=== PATIENT | male | born 1930 | race Caucasian/White ===

== ENCOUNTER 2016-08-13 22:05 | Inpatient (IN) | payer MEDICAID, MEDICARE ==
[~2016-08-13] VITALS: Ht 167.6 cm; Wt 47.2 kg
[~2016-08-13 22:05] MED LIST: ACET100V5 NEB; ALBU1.25 NEB; ASPI-618 PO; CHOL10002 PO; CYAN10009 PO; IPRA0.2S6 NEB; LEVO25TA9 PO; MAGN400O4 PO; MEGE20TA5 PO; MENT71OI TOP; OMEG1CAP PO; PANT40TA2 PO; PIPE3.379 IV; SIMV10TA6 PO
[2016-08-13 22:36] LABS: BASOPHILS % (AUTO) 0.3 % (0.0-2.0); CALCIUM 9.1 mg/dL (8.5-10.1); EOSINOPHILS % (AUTO) 0.1 % (0.0-7.0); HEMOGLOBIN 10.8 g/dL (14.0-18.0); LYMPHOCYTES # (AUTO) 1.1 K/uL (0.8-4.8); LYMPHOCYTES % (AUTO) 10.3 % (20.5-51.5); MEAN CORPUSCULAR HEMOGLOBIN 29.8 uug (27.0-31.0); MEAN CORPUSCULAR HGB CONC 33 g/dL (32.0-37.0); MEAN CORPUSCULAR VOLUME 90.9 fL (82.0-92.0); MONOCYTES % (AUTO) 9.3 % (0.0-11.0); NEUTROPHILS # (AUTO) 8.8 K/uL (1.8-8.9); PLATELET COUNT (AUTO) 416 K/uL (150-450); POTASSIUM 4.2 mmol/L (3.5-5.1); RED BLOOD CELL COUNT(AUTO) 3.63 MIL/uL (4.70-6.10); RED CELL DISTRIBUTION WIDTH 13.4 % (11.5-14.5); WHITE BLOOD COUNT (AUTO) 10.9 K/uL (4.0-11.2)
[2016-08-13 22:49] LABS: ALBUMIN 2.3 g/dL (3.4-5.0); BILIRUBIN,DIRECT 0.2 mg/dL (0.0-0.2); BILIRUBIN,TOTAL 0.4 mg/dL (0.2-1.0)
[2016-08-13] MEDS ORDERED: ACET-2154 PO (23:09)
[2016-08-13 23:24] LABS: LACTIC ACID 2.2 mmol/L (0.4-2.0)
[2016-08-14] MEDS ORDERED: ASPIRIN 325 MG TABLET PO ONE
[2016-08-14] MEDS ORDERED: FUROSEMIDE 20 MG/2 ML VIAL IV ONE
[2016-08-14] MEDS ORDERED: FUROSEMIDE 40 MG/4 ML VIAL ONE (00:06)
[2016-08-14] MEDS ORDERED: ASPIRIN 325 MG TABLET ONE (00:06)
[2016-08-14 00:55] VITALS: BP 150/74
[2016-08-14] MEDS ORDERED: MAGNESIUM HYDROXIDE 30 ML LIQUID UDC PO PRN (01:00)
[2016-08-14] MEDS ORDERED: ONDANSETRON 4 MG/2 ML VIAL IV PRN (01:00)
[2016-08-14] MEDS ORDERED: Z GUARD REMEDY PASTE 57 GM TUBE TOP PRN (01:15)
[2016-08-14 04:48] VITALS: BP 124/57
[2016-08-14] MEDS: CYANOCOBALAMIN 1,000 MCG TABLET PO SCH (08:46)
[2016-08-14] MEDS: ASPIRIN EC 81 MG TABLET.DR PO SCH (08:46)
[2016-08-14] MEDS: CHOLECALCIFEROL 1,000 UNIT TABLET PO SCH (08:46)
[2016-08-14] MEDS: PANTOPRAZOLE SODIUM 40 MG TABLET.DR PO SCH (08:48)
[2016-08-14] MEDS: OMEGA-3 FATTY ACIDS/FISH OIL CAPSULE PO SCH ×2 (09:00→10:34)
[2016-08-14] MEDS: LEVOTHYROXINE SODIUM 25 MCG TABLET PO SCH ×2 (09:08→10:34)
[2016-08-14] MEDS ORDERED: DEXTROSE 5% IV ONE (11:15)
[2016-08-14] MEDS ORDERED: BUMETANIDE IV ONE (11:15)
[2016-08-14] MEDS ORDERED: ACETAzolamide SODIUM 500 MG VIAL IV ONE (11:15)
[2016-08-14 11:40] VITALS: BP 126/53
[2016-08-14 15:22] VITALS: BP 117/46
[2016-08-14 20:00] VITALS: BP 138/61
[2016-08-14] MEDS: ACETAMINOPHEN 325 MG TABLET PO PRN (20:39)
[2016-08-14] MEDS: SIMVASTATIN 10 MG TABLET PO SCH (20:39)
[2016-08-14] MEDS: Z GUARD REMEDY PASTE 57 GM TUBE TOP PRN (21:00)
[2016-08-15] VITALS: BP 151/83
[2016-08-15 04:00] VITALS: BP 140/65
[2016-08-15 05:33] LABS: BASOPHILS % (AUTO) 0.1 % (0.0-2.0); EOSINOPHILS # (AUTO) 0.1 K/uL (0.0-0.7); EOSINOPHILS % (AUTO) 0.6 % (0.0-7.0); HEMATOCRIT 37.8 % (40.0-50.0); HEMOGLOBIN 12.2 g/dL (14.0-18.0); LYMPHOCYTES # (AUTO) 2.8 K/uL (0.8-4.8); LYMPHOCYTES % (AUTO) 15.1 % (20.5-51.5); MEAN CORPUSCULAR HEMOGLOBIN 29.6 uug (27.0-31.0); MEAN CORPUSCULAR HGB CONC 32 g/dL (32.0-37.0); MEAN CORPUSCULAR VOLUME 91.6 fL (82.0-92.0); MONOCYTES # (AUTO) 1.2 K/uL (0.1-1.30); MONOCYTES % (AUTO) 6.5 % (0.0-11.0); NEUTROPHILS # (AUTO) 14.5 K/uL (1.8-8.9); NEUTROPHILS % (AUTO) 77.7 % (38.5-71.5); PLATELET COUNT (AUTO) 414 K/uL (150-450); RED BLOOD CELL COUNT(AUTO) 4.12 MIL/uL (4.70-6.10); RED CELL DISTRIBUTION WIDTH 14.1 % (11.5-14.5); WHITE BLOOD COUNT (AUTO) 18.6 K/uL (4.0-11.2)
[2016-08-15 05:45] LABS: CALCIUM 9.8 mg/dL (8.5-10.1); CREATININE 1.1 mg/dL (0.6-1.3); POTASSIUM 3.6 mmol/L (3.5-5.1)
[2016-08-15] MEDS: LEVOTHYROXINE SODIUM 25 MCG TABLET PO SCH (06:27)
[2016-08-15] MEDS: PANTOPRAZOLE SODIUM 40 MG TABLET.DR PO SCH (06:27)
[2016-08-15 07:38] VITALS: BP 136/62
[2016-08-15] MEDS: Z GUARD REMEDY PASTE 57 GM TUBE TOP PRN (08:26)
[2016-08-15] MEDS: CYANOCOBALAMIN 1,000 MCG TABLET PO SCH (08:26)
[2016-08-15] MEDS: CHOLECALCIFEROL 1,000 UNIT TABLET PO SCH (08:26)
[2016-08-15] MEDS: OMEGA-3 FATTY ACIDS/FISH OIL CAPSULE PO SCH (08:26)
[2016-08-15] MEDS: ASPIRIN EC 81 MG TABLET.DR PO SCH (08:26)
[2016-08-15 11:16] VITALS: BP 129/57
[2016-08-15 16:00] VITALS: BP 136/70
[2016-08-15 19:00] VITALS: BP 135/63
[2016-08-15] MEDS: SIMVASTATIN 10 MG TABLET PO SCH (20:43)
[2016-08-15] MEDS: ENOXAPARIN SODIUM 30 MG/0.3 ML DISP.SYRIN SUBCUT SCH (20:43)
[2016-08-15] MEDS: BUMETANIDE 1 MG/4 ML VIAL IV SCH (21:39)
[2016-08-15] MEDS ORDERED: BUMETANIDE 1 MG/4 ML VIAL ONE (21:42)
[2016-08-16 00:02] VITALS: BP 137/62
[2016-08-16 02:28] LABS: *BILIRUBIN,URIN NEGATIVE (NEGATIVE); *BLOOD, URINE 2+ (NEGATIVE); *CLARITY,URINE SLIGHTLY CLOUDY (CLEAR); *COLOR,URINE YELLOW (YELLOW); *KETONES,URINE NEGATIVE (NEGATIVE); *PROTEIN,URINE NEGATIVE (NEGATIVE); LEUKOCYTE ESTERASE ,URINE NEGATIVE (NEGATIVE); NITRITE, URINE NEGATIVE (NEGATIVE); UGLUCOSE NEGATIVE (NEGATIVE)
[2016-08-16 02:33] LABS: BACTERIA,URINE FEW /HPF (NONE SEEN); RBC,URINE 20-50 /HPF (0-3); SQUAMOUS EPITHELIAL CELL,UR FEW /HPF (NONE SEEN); WBC,URINE 0-3 /HPF (0-3)
[2016-08-16 04:53] VITALS: BP 138/71
[2016-08-16] MEDS: LEVOTHYROXINE SODIUM 25 MCG TABLET PO SCH (06:40)
[2016-08-16] MEDS: PANTOPRAZOLE SODIUM 40 MG TABLET.DR PO SCH (06:40)
[2016-08-16 08:01] LABS: BASOPHILS # (AUTO) 0.1 K/uL (0.0-0.2); BASOPHILS % (AUTO) 0.5 % (0.0-2.0); EOSINOPHILS % (AUTO) 0.2 % (0.0-7.0); HEMATOCRIT 39.1 % (40.0-50.0); HEMOGLOBIN 12.7 g/dL (14.0-18.0); LYMPHOCYTES # (AUTO) 2.1 K/uL (0.8-4.8); LYMPHOCYTES % (AUTO) 13.9 % (20.5-51.5); MEAN CORPUSCULAR HEMOGLOBIN 29.5 uug (27.0-31.0); MEAN CORPUSCULAR HGB CONC 33 g/dL (32.0-37.0); MONOCYTES # (AUTO) 0.7 K/uL (0.1-1.30); MONOCYTES % (AUTO) 4.4 % (0.0-11.0); NEUTROPHILS # (AUTO) 11.9 K/uL (1.8-8.9); PLATELET COUNT (AUTO) 473 K/uL (150-450); RED CELL DISTRIBUTION WIDTH 14.1 % (11.5-14.5); WHITE BLOOD COUNT (AUTO) 14.8 K/uL (4.0-11.2)
[2016-08-16 08:06] LABS: CREATININE 1.1 mg/dL (0.6-1.3); POTASSIUM 3.3 mmol/L (3.5-5.1)
[2016-08-16 08:19] LABS: THYROID STIMULATING HORMONE 3.37 mIU/mL (0.358-3.740)
[2016-08-16] MEDS: CHOLECALCIFEROL 1,000 UNIT TABLET PO SCH (08:29)
[2016-08-16] MEDS: OMEGA-3 FATTY ACIDS/FISH OIL CAPSULE PO SCH (08:29)
[2016-08-16] MEDS: CYANOCOBALAMIN 1,000 MCG TABLET PO SCH (08:29)
[2016-08-16] MEDS: BUMETANIDE 1 MG/4 ML VIAL IV SCH ×2 (08:29→16:18)
[2016-08-16] MEDS: ASPIRIN EC 81 MG TABLET.DR PO SCH (08:29)
[2016-08-16] MEDS: ALBUTEROL SULFATE 1.25 MG/3 ML NEBU NEB PRN (09:15)
[2016-08-16] MEDS: IPRATROPIUM BROMIDE 0.5 MG/2.5 ML NEBU NEB PRN (09:15)
[2016-08-16 11:26] VITALS: BP 141/41
[2016-08-16 11:30] VITALS: BP 141/41
[2016-08-16] MEDS ORDERED: POTASSIUM CHLORIDE 20 MEQ TAB.PRT.SR PO ONE (11:30)
[2016-08-16 15:36] VITALS: BP 139/56
[2016-08-16 20:00] VITALS: BP 137/49
[2016-08-16] MEDS: SIMVASTATIN 10 MG TABLET PO SCH (20:20)
[2016-08-16] MEDS: ENOXAPARIN SODIUM 30 MG/0.3 ML DISP.SYRIN SUBCUT SCH (20:21)
[2016-08-17 04:00] VITALS: BP 152/56
[2016-08-17] MEDS: PANTOPRAZOLE SODIUM 40 MG TABLET.DR PO SCH (06:32)
[2016-08-17] MEDS: LEVOTHYROXINE SODIUM 25 MCG TABLET PO SCH (06:32)
[2016-08-17 06:58] LABS: BASOPHILS % (AUTO) 0.2 % (0.0-2.0); CALCIUM 9.2 mg/dL (8.5-10.1); CREATININE 0.9 mg/dL (0.6-1.3); EOSINOPHILS # (AUTO) 0.1 K/uL (0.0-0.7); EOSINOPHILS % (AUTO) 0.4 % (0.0-7.0); HEMATOCRIT 32.1 % (40.0-50.0); HEMOGLOBIN 10.8 g/dL (14.0-18.0); LYMPHOCYTES % (AUTO) 13.7 % (20.5-51.5); MAGNESIUM 1.9 mg/dL (1.8-2.4); MEAN CORPUSCULAR HEMOGLOBIN 30.6 uug (27.0-31.0); MEAN CORPUSCULAR HGB CONC 34 g/dL (32.0-37.0); MEAN CORPUSCULAR VOLUME 91.2 fL (82.0-92.0); MONOCYTES # (AUTO) 0.9 K/uL (0.1-1.30); MONOCYTES % (AUTO) 5.7 % (0.0-11.0); NEUTROPHILS # (AUTO) 11.9 K/uL (1.8-8.9); PHOSPHOROUS 3.5 mg/dL (2.5-4.9); PLATELET COUNT (AUTO) 430 K/uL (150-450); POTASSIUM 3.1 mmol/L (3.5-5.1); RED BLOOD CELL COUNT(AUTO) 3.52 MIL/uL (4.70-6.10); WHITE BLOOD COUNT (AUTO) 14.9 K/uL (4.0-11.2)
[2016-08-17] MEDS: ASPIRIN EC 81 MG TABLET.DR PO SCH (08:15)
[2016-08-17] MEDS: CYANOCOBALAMIN 1,000 MCG TABLET PO SCH (08:16)
[2016-08-17] MEDS: OMEGA-3 FATTY ACIDS/FISH OIL CAPSULE PO SCH (08:16)
[2016-08-17] MEDS: CHOLECALCIFEROL 1,000 UNIT TABLET PO SCH (08:16)
[2016-08-17] MEDS ORDERED: POTASSIUM CHLORIDE 20 MEQ TAB.PRT.SR PO ONE (10:00)
[2016-08-17] MEDS: POTASSIUM CHLORIDE 20 MEQ TAB.PRT.SR PO SCH ×2 (10:31→14:08)
[2016-08-17 11:41] VITALS: BP 127/55
[2016-08-17] MEDS: BUMETANIDE 1 MG TABLET PO SCH (14:07)
[2016-08-17] MEDS: ALBUTEROL SULFATE 1.25 MG/3 ML NEBU NEB PRN (14:48)
[2016-08-17] MEDS: IPRATROPIUM BROMIDE 0.5 MG/2.5 ML NEBU NEB PRN (14:48)
[2016-08-17 15:50] VITALS: BP 154/57
[2016-08-17 20:00] VITALS: BP 149/73
[2016-08-17] MEDS: ENOXAPARIN SODIUM 30 MG/0.3 ML DISP.SYRIN SUBCUT SCH (20:21)
[2016-08-17] MEDS: ACETAMINOPHEN 325 MG TABLET PO PRN (20:21)
[2016-08-17] MEDS: SIMVASTATIN 10 MG TABLET PO SCH (20:21)
[2016-08-18 04:12] VITALS: BP 145/69
[2016-08-18] MEDS: PANTOPRAZOLE SODIUM 40 MG TABLET.DR PO SCH (06:24)
[2016-08-18] MEDS: LEVOTHYROXINE SODIUM 25 MCG TABLET PO SCH (06:24)
[2016-08-18 08:26] LABS: BASOPHILS % (AUTO) 0.1 % (0.0-2.0); EOSINOPHILS # (AUTO) 0.1 K/uL (0.0-0.7); EOSINOPHILS % (AUTO) 0.7 % (0.0-7.0); HEMATOCRIT 37.7 % (40.0-50.0); HEMOGLOBIN 12.3 g/dL (14.0-18.0); LYMPHOCYTES # (AUTO) 2.2 K/uL (0.8-4.8); LYMPHOCYTES % (AUTO) 15.8 % (20.5-51.5); MEAN CORPUSCULAR HEMOGLOBIN 30.1 uug (27.0-31.0); MEAN CORPUSCULAR HGB CONC 33 g/dL (32.0-37.0); MEAN CORPUSCULAR VOLUME 92.2 fL (82.0-92.0); MONOCYTES % (AUTO) 6.9 % (0.0-11.0); NEUTROPHILS # (AUTO) 10.8 K/uL (1.8-8.9); NEUTROPHILS % (AUTO) 76.5 % (38.5-71.5); PLATELET COUNT (AUTO) 425 K/uL (150-450); RED BLOOD CELL COUNT(AUTO) 4.09 MIL/uL (4.70-6.10); WHITE BLOOD COUNT (AUTO) 14.1 K/uL (4.0-11.2)
[2016-08-18 08:37] LABS: CALCIUM 9.5 mg/dL (8.5-10.1); POTASSIUM 4.6 mmol/L (3.5-5.1)
[2016-08-18] MEDS: OMEGA-3 FATTY ACIDS/FISH OIL CAPSULE PO SCH (09:03)
[2016-08-18] MEDS: CYANOCOBALAMIN 1,000 MCG TABLET PO SCH (09:03)
[2016-08-18] MEDS: CHOLECALCIFEROL 1,000 UNIT TABLET PO SCH (09:04)
[2016-08-18] MEDS: ASPIRIN EC 81 MG TABLET.DR PO SCH (09:05)
[2016-08-18] MEDS: BUMETANIDE 1 MG TABLET PO SCH (09:45)
[2016-08-18] MEDS ORDERED: BUME1TAB13 PO (10:56)
[2016-08-18] MEDS: ALBUTEROL SULFATE 1.25 MG/3 ML NEBU NEB PRN (10:57)
[2016-08-18] MEDS: IPRATROPIUM BROMIDE 0.5 MG/2.5 ML NEBU NEB PRN (10:57)
[2016-08-18 11:37] VITALS: BP 147/67
[2016-08-18 11:58] LABS: BAND % (MANUAL) 2 % (0-10); EOSINOPHILS % (MANUAL) 2 % (0-8); LYMPHOCYTES % (MANUAL) 13 % (20-40); MONOCYTES % (MANUAL) 5 % (2-10); NEUTROPHILS % (MANUAL) 78 % (42-75); PLATELET ESTIMATE ADEQUATE
[2016-08-18 11:59] LABS: HYPOCHROMASIA 1+
[2016-08-18 15:37] VITALS: BP 155/62
[2016-08-18 20:00] VITALS: BP 152/63
[2016-08-18] MEDS: SIMVASTATIN 10 MG TABLET PO SCH (20:04)
[2016-08-18] MEDS: ENOXAPARIN SODIUM 30 MG/0.3 ML DISP.SYRIN SUBCUT SCH (20:05)
[2016-08-19] VITALS: BP 138/56
[2016-08-19 04:00] VITALS: BP 134/56
[2016-08-19] MEDS: BUMETANIDE 1 MG TABLET PO SCH (09:00)
[2016-08-19] MEDS: CYANOCOBALAMIN 1,000 MCG TABLET PO SCH (09:06)
[2016-08-19] MEDS: OMEGA-3 FATTY ACIDS/FISH OIL CAPSULE PO SCH (09:06)
[2016-08-19] MEDS: CHOLECALCIFEROL 1,000 UNIT TABLET PO SCH (09:06)
[2016-08-19] MEDS: PANTOPRAZOLE SODIUM 40 MG TABLET.DR PO SCH (09:07)
[2016-08-19] MEDS: ASPIRIN EC 81 MG TABLET.DR PO SCH (09:07)
[2016-08-19] MEDS: LEVOTHYROXINE SODIUM 25 MCG TABLET PO SCH (09:07)
[2016-08-19] MEDS: ALBUTEROL SULFATE 1.25 MG/3 ML NEBU NEB PRN ×3 (10:18→23:31)
[2016-08-19] MEDS: IPRATROPIUM BROMIDE 0.5 MG/2.5 ML NEBU NEB PRN ×3 (10:18→23:31)
[2016-08-19 11:49] VITALS: BP 133/59
[2016-08-19 15:15] VITALS: BP 133/54
[2016-08-19] MEDS: PIPERACILLIN/TAZOBACTAM/D5W 3.375 G in PREMIXED 1 EACH IV SCH ×2 (15:58→21:01)
[2016-08-19] MEDS: CARVEDILOL 3.125 MG TABLET PO SCH ×2 (18:00→18:33)
[2016-08-19 18:23] VITALS: BP 143/49
[2016-08-19 20:45] VITALS: BP 136/57
[2016-08-19] MEDS: SIMVASTATIN 10 MG TABLET PO SCH ×2 (21:00→21:01)
[2016-08-19] MEDS: ENOXAPARIN SODIUM 30 MG/0.3 ML DISP.SYRIN SUBCUT SCH (21:02)
[2016-08-19] MEDS: IV D5/ 0.9% NACL 1,000 ML IV SCH (22:41)
[2016-08-20 05:24] VITALS: BP 133/59
[2016-08-20] MEDS: LEVOTHYROXINE SODIUM 25 MCG TABLET PO SCH (06:38)
[2016-08-20] MEDS: PIPERACILLIN/TAZOBACTAM/D5W 3.375 G in PREMIXED 1 EACH IV SCH ×3 (06:38→21:45)
[2016-08-20] MEDS: PANTOPRAZOLE SODIUM 40 MG TABLET.DR PO SCH (06:38)
[2016-08-20] MEDS: IPRATROPIUM BROMIDE 0.5 MG/2.5 ML NEBU NEB PRN ×3 (07:40→22:30)
[2016-08-20] MEDS: ALBUTEROL SULFATE 1.25 MG/3 ML NEBU NEB PRN ×3 (07:40→22:30)
[2016-08-20 08:27] LABS: ABG BASE EXCESS 6.1 mmol/L; ABG HCO3 31.4 mmol/L; ABG PH 7.424 (7.350-7.450); ABG PO2 118.4 mmHg (75.0-100.0); ABG SITE LEFT RADIAL; ABG TOTAL HEMOGLOBIN 10.6 G/dL (13.5-18.0); MetHb 0.2 % (0.0-1.5); O2Hb 97.5 % (94.0-97.0); VENT MODE Nasal Cannula
[2016-08-20] MEDS ORDERED: LISINOPRIL 5 MG TABLET PO SCH (09:00)
[2016-08-20] MEDS: CYANOCOBALAMIN 1,000 MCG TABLET PO SCH (09:21)
[2016-08-20] MEDS: CHOLECALCIFEROL 1,000 UNIT TABLET PO SCH (09:21)
[2016-08-20] MEDS: ASPIRIN EC 81 MG TABLET.DR PO SCH (09:21)
[2016-08-20] MEDS: OMEGA-3 FATTY ACIDS/FISH OIL CAPSULE PO SCH (09:21)
[2016-08-20] MEDS: CARVEDILOL 3.125 MG TABLET PO SCH ×2 (09:22→18:03)
[2016-08-20] MEDS: BOOST PLUS 237 ML LIQUID (VERY VANILLA) PO SCH ×3 (09:41→18:03)
[2016-08-20 11:48] VITALS: BP 157/61
[2016-08-20] MEDS: IV D5/ 0.9% NACL 1,000 ML IV SCH (12:12)
[2016-08-20 15:50] VITALS: BP 88/44
[2016-08-20 17:43] VITALS: BP 88/44
[2016-08-20 18:00] VITALS: BP 105/64
[2016-08-20] MEDS: MINERAL OIL/PETROLAT OPHT OINT 3.5 GM TUBE EACHEYE SCH ×2 (18:03→22:25)
[2016-08-20 19:00] VITALS: BP 109/48
[2016-08-20] MEDS: ENOXAPARIN SODIUM 30 MG/0.3 ML DISP.SYRIN SUBCUT SCH (20:35)
[2016-08-20] MEDS: SIMVASTATIN 10 MG TABLET PO SCH (20:35)
[2016-08-20] MEDS: IV D5W 1000ML 1,000 ML IV PRN (23:18)
[2016-08-21] VITALS (82 sets, daily range): BP systolic 63–147; BP diastolic 31–74
[2016-08-21] MEDS: NOREPINEPHRINE BITARTRATE 8 MG in IV DEXTROSE 5% 500 ML IV PRN ×2 (01:00→18:22)
[2016-08-21] MEDS ORDERED: NOREPINEPHRINE BITARTRATE 4 MG/4 ML VIAL IV ONE (01:17)
[2016-08-21] MEDS ORDERED: NOREPINEPHRINE BITARTRATE 8 MG in IV DEXTROSE 5% 250 ML IV PRN (01:30)
[2016-08-21] MEDS: MINERAL OIL/PETROLAT OPHT OINT 3.5 GM TUBE EACHEYE SCH ×4 (03:45→22:33)
[2016-08-21 05:23] LABS: CALCIUM 8.9 mg/dL (8.5-10.1); MAGNESIUM 2.2 mg/dL (1.8-2.4); PHOSPHOROUS 4.1 mg/dL (2.5-4.9); POTASSIUM 3.1 mmol/L (3.5-5.1)
[2016-08-21 05:26] LABS: CREATININE 1.7 mg/dL (0.6-1.3)
[2016-08-21] MEDS: PIPERACILLIN/TAZOBACTAM/D5W 3.375 G in PREMIXED 1 EACH IV SCH ×3 (05:40→22:33)
[2016-08-21 06:51] LABS: HEMOGLOBIN 10.5 g/dL (14.0-18.0); RED BLOOD CELL COUNT(AUTO) 3.48 MIL/uL (4.70-6.10); WHITE BLOOD COUNT (AUTO) 16.1 K/uL (4.0-11.2)
[2016-08-21] MEDS: LEVOTHYROXINE SODIUM 25 MCG TABLET PO SCH (06:51)
[2016-08-21] MEDS: PANTOPRAZOLE SODIUM 40 MG TABLET.DR PO SCH (06:51)
[2016-08-21 06:52] LABS: HEMATOCRIT 33.1 % (40.0-50.0); MEAN CORPUSCULAR HEMOGLOBIN 30.1 uug (27.0-31.0); MEAN CORPUSCULAR HGB CONC 32 g/dL (32.0-37.0); MONOCYTES % (AUTO) 4.7 % (0.0-11.0); NEUTROPHILS % (AUTO) 80.6 % (38.5-71.5); PLATELET COUNT (AUTO) 326 K/uL (150-450); RED CELL DISTRIBUTION WIDTH 15.7 % (11.5-14.5)
[2016-08-21 06:53] LABS: BASOPHILS % (AUTO) 0.2 % (0.0-2.0); EOSINOPHILS # (AUTO) 0.1 K/uL (0.0-0.7); EOSINOPHILS % (AUTO) 0.5 % (0.0-7.0); LYMPHOCYTES # (AUTO) 2.2 K/uL (0.8-4.8); MONOCYTES # (AUTO) 0.8 K/uL (0.1-1.30); NEUTROPHILS # (AUTO) 12.9 K/uL (1.8-8.9)
[2016-08-21 07:23] LABS: BAND % (MANUAL) 10 % (0-10); LYMPHOCYTES % (MANUAL) 20 % (20-40); MONOCYTES % (MANUAL) 5 % (2-10); NEUTROPHILS % (MANUAL) 65 % (42-75)
[2016-08-21 07:25] LABS: ANISOCYTOSIS 1+
[2016-08-21 07:34] LABS: PLATELET ESTIMATE ADEQUATE
[2016-08-21] MEDS ORDERED: IV NORMAL SALINE 250 ML IV ONE ×2 (08:45→17:15)
[2016-08-21] MEDS ORDERED: IV NORMAL SALINE 250 ML BAG IV ONE ×2 (08:45→17:00)
[2016-08-21] MEDS: BOOST PLUS 237 ML LIQUID (VERY VANILLA) PO SCH (09:00)
[2016-08-21] MEDS: ALBUTEROL SULFATE 1.25 MG/3 ML NEBU NEB PRN ×2 (11:33→22:47)
[2016-08-21] MEDS: IPRATROPIUM BROMIDE 0.5 MG/2.5 ML NEBU NEB PRN ×2 (11:33→22:47)
[2016-08-21] MEDS: IV D5W 1000ML 1,000 ML IV PRN (13:21)
[2016-08-21] MEDS: POTASSIUM CHLORIDE 50 ML IV SCH ×3 (13:22→16:10)
[2016-08-21] MEDS: FIBERSOURCE HN 1000ML LIQUID GT PRN (13:34)
[2016-08-21] MEDS: CHOLECALCIFEROL 1,000 UNIT TABLET PO SCH ×3 (14:39→16:13)
[2016-08-21] MEDS: OMEGA-3 FATTY ACIDS/FISH OIL CAPSULE PO SCH (14:40)
[2016-08-21] MEDS: CYANOCOBALAMIN 1,000 MCG TABLET PO SCH (16:32)
[2016-08-21] MEDS: HYDROCODONE/APAP 5-325MG TABLET PO PRN (17:28)
[2016-08-21 20:18] LABS: ABG BASE EXCESS 4.8 mmol/L; ABG HCO3 28.6 mmol/L; ABG PCO2 39.5 mmHg (35.0-45.0); ABG PH 7.478 (7.350-7.450); ABG PO2 74.7 mmHg (75.0-100.0); ABG SITE RIGHT FEMORAL; ABG TOTAL HEMOGLOBIN 11.2 G/dL (13.5-18.0); MetHb 0.3 % (0.0-1.5); O2Hb 94.1 % (94.0-97.0)
[2016-08-21] MEDS: DOXYCYCLINE HYCLATE IV 100 MG in IV DEXTROSE 5% 100 ML IV SCH (21:00)
[2016-08-21] MEDS: SIMVASTATIN 10 MG TABLET PO SCH ×2 (21:00→21:01)
[2016-08-21] MEDS: ENOXAPARIN SODIUM 30 MG/0.3 ML DISP.SYRIN SUBCUT SCH (21:01)
[2016-08-21] MEDS ORDERED: DOXYCYCLINE HYCLATE 100 MG INJ IV ONE (21:17)
[2016-08-22] VITALS (96 sets, daily range): BP systolic 87–148; BP diastolic 35–100
[2016-08-22] MEDS: MINERAL OIL/PETROLAT OPHT OINT 3.5 GM TUBE EACHEYE SCH ×4 (03:45→22:14)
[2016-08-22] MEDS: IV D5W 1000ML 1,000 ML IV PRN (04:38)
[2016-08-22] MEDS: PANTOPRAZOLE ORAL SUSPENSION 40 MG SUSPDR.PKT GT SCH (05:25)
[2016-08-22] MEDS: PIPERACILLIN/TAZOBACTAM/D5W 3.375 G in PREMIXED 1 EACH IV SCH ×2 (05:30→14:35)
[2016-08-22 05:48] LABS: POTASSIUM 3.2 mmol/L (3.5-5.1)
[2016-08-22 05:56] LABS: CREATININE 1.4 mg/dL (0.6-1.3)
[2016-08-22] MEDS: LEVOTHYROXINE SODIUM 25 MCG TABLET PO SCH (06:16)
[2016-08-22] MEDS: ASPIRIN 81 MG TAB.CHEW GT SCH (09:00)
[2016-08-22] MEDS: OMEGA-3 FATTY ACIDS/FISH OIL CAPSULE PO SCH (09:48)
[2016-08-22] MEDS: CYANOCOBALAMIN 1,000 MCG TABLET PO SCH (09:48)
[2016-08-22] MEDS: CHOLECALCIFEROL 1,000 UNIT TABLET PO SCH (09:55)
[2016-08-22] MEDS: POTASSIUM CHLORIDE 50 ML IV SCH ×2 (09:55→11:15)
[2016-08-22] MEDS: DOXYCYCLINE HYCLATE IV 100 MG in IV DEXTROSE 5% 100 ML IV SCH (10:33)
[2016-08-22] MEDS: ALBUTEROL SULFATE 1.25 MG/3 ML NEBU NEB PRN ×2 (11:50→19:19)
[2016-08-22] MEDS: NOREPINEPHRINE BITARTRATE 8 MG in IV DEXTROSE 5% 500 ML IV PRN (15:05)
[2016-08-22] MEDS ORDERED: IV NORMAL SALINE 250 ML IV ONE ×2 (17:00→17:45)
[2016-08-22] MEDS: IV NORMAL SALINE 250 ML IV PRN (18:11)
[2016-08-22] MEDS: IPRATROPIUM BROMIDE 0.5 MG/2.5 ML NEBU NEB PRN (19:19)
[2016-08-22] MEDS ORDERED: VANCOMYCIN IV 750 MG in IV DEXTROSE 5% 250 ML IV ONE (19:30)
[2016-08-22] MEDS: CEFTRIAXONE 1 G in IV DEXTROSE 5% 50 ML IV SCH (20:28)
[2016-08-22] MEDS: ASCORBIC ACID 500 MG TABLET PO SCH (20:31)
[2016-08-22] MEDS: SIMVASTATIN 10 MG TABLET PO SCH (20:33)
[2016-08-22] MEDS: ENOXAPARIN SODIUM 30 MG/0.3 ML DISP.SYRIN SUBCUT SCH (20:34)
[2016-08-22] MEDS: FIBERSOURCE HN 1000ML LIQUID GT PRN (20:38)
[2016-08-22] MEDS: Z GUARD REMEDY PASTE 57 GM TUBE TOP PRN (23:42)
[2016-08-22] MEDS: HYDROCODONE/APAP 5-325MG TABLET PO PRN (23:42)
[2016-08-23] VITALS (44 sets, daily range): BP systolic 82–163; BP diastolic 39–89
[2016-08-23] MEDS: MINERAL OIL/PETROLAT OPHT OINT 3.5 GM TUBE EACHEYE SCH ×4 (04:14→20:47)
[2016-08-23 05:19] LABS: BASOPHILS % (AUTO) 0.2 % (0.0-2.0); BILIRUBIN,TOTAL 0.2 mg/dL (0.2-1.0); CALCIUM 7.9 mg/dL (8.5-10.1); CREATININE 1.2 mg/dL (0.6-1.3); EOSINOPHILS # (AUTO) 0.3 K/uL (0.0-0.7); EOSINOPHILS % (AUTO) 2.9 % (0.0-7.0); HEMATOCRIT 24.7 % (40.0-50.0); HEMOGLOBIN 7.9 g/dL (14.0-18.0); LYMPHOCYTES # (AUTO) 1.5 K/uL (0.8-4.8); LYMPHOCYTES % (AUTO) 12.8 % (20.5-51.5); MAGNESIUM 1.8 mg/dL (1.8-2.4); MEAN CORPUSCULAR HEMOGLOBIN 29.3 uug (27.0-31.0); MEAN CORPUSCULAR HGB CONC 32 g/dL (32.0-37.0); MEAN CORPUSCULAR VOLUME 91.4 fL (82.0-92.0); MONOCYTES # (AUTO) 0.7 K/uL (0.1-1.30); MONOCYTES % (AUTO) 5.8 % (0.0-11.0); NEUTROPHILS # (AUTO) 9.2 K/uL (1.8-8.9); NEUTROPHILS % (AUTO) 78.3 % (38.5-71.5); PLATELET COUNT (AUTO) 219 K/uL (150-450); POTASSIUM 3.5 mmol/L (3.5-5.1); RED CELL DISTRIBUTION WIDTH 14.2 % (11.5-14.5); WHITE BLOOD COUNT (AUTO) 11.7 K/uL (4.0-11.2)
[2016-08-23 05:27] LABS: ALBUMIN 1.5 g/dL (3.4-5.0)
[2016-08-23] MEDS: PANTOPRAZOLE ORAL SUSPENSION 40 MG SUSPDR.PKT GT SCH (06:34)
[2016-08-23] MEDS: LEVOTHYROXINE SODIUM 25 MCG TABLET PO SCH (06:34)
[2016-08-23] MEDS: ASCORBIC ACID 500 MG TABLET PO SCH ×2 (08:40→20:00)
[2016-08-23] MEDS: CYANOCOBALAMIN 1,000 MCG TABLET PO SCH (08:40)
[2016-08-23] MEDS: ASPIRIN 81 MG TAB.CHEW GT SCH (08:40)
[2016-08-23] MEDS: OMEGA-3 FATTY ACIDS/FISH OIL CAPSULE PO SCH (08:40)
[2016-08-23] MEDS: RIFAMPIN 300 MG CAPSULE PO SCH (08:41)
[2016-08-23] MEDS: CHOLECALCIFEROL 1,000 UNIT TABLET PO SCH (08:41)
[2016-08-23 09:32] LABS: ABG HCO3 26.5 mmol/L; ABG PCO2 45.4 mmHg (35.0-45.0); ABG PH 7.384 (7.350-7.450); ABG PO2 117.7 mmHg (75.0-100.0); ABG SITE LEFT RADIAL; VENT MODE Nasal Cannula
[2016-08-23] MEDS: ECHINACEA NG SCH ×2 (14:08→22:38)
[2016-08-23] MEDS: ACETYL CARNITINE NG SCH (14:08)
[2016-08-23 15:16] LABS: HEMATOCRIT 25.3 % (40.0-50.0); HEMOGLOBIN 8.2 g/dL (14.0-18.0)
[2016-08-23 17:42] LABS: *OCCULT BLOOD STOOL NEGATIVE (NEGATIVE)
[2016-08-23] MEDS: CEFTRIAXONE 1 G in IV DEXTROSE 5% 50 ML IV SCH (18:07)
[2016-08-23] MEDS ORDERED: VANCOMYCIN IV 750 MG in IV DEXTROSE 5% 250 ML IV ONE (20:00)
[2016-08-23] MEDS: SIMVASTATIN 10 MG TABLET PO SCH (20:00)
[2016-08-24] VITALS (24 sets, daily range): BP systolic 101–155; BP diastolic 43–102
[2016-08-24] MEDS: MINERAL OIL/PETROLAT OPHT OINT 3.5 GM TUBE EACHEYE SCH ×4 (03:45→21:46)
[2016-08-24 05:01] LABS: BASOPHILS % (AUTO) 0.3 % (0.0-2.0); EOSINOPHILS # (AUTO) 0.2 K/uL (0.0-0.7); EOSINOPHILS % (AUTO) 1.9 % (0.0-7.0); HEMATOCRIT 24.6 % (40.0-50.0); HEMOGLOBIN 8.2 g/dL (14.0-18.0); LYMPHOCYTES % (AUTO) 18.8 % (20.5-51.5); MEAN CORPUSCULAR HGB CONC 33 g/dL (32.0-37.0); MEAN CORPUSCULAR VOLUME 90.1 fL (82.0-92.0); MONOCYTES # (AUTO) 0.7 K/uL (0.1-1.30); MONOCYTES % (AUTO) 6.8 % (0.0-11.0); NEUTROPHILS # (AUTO) 7.7 K/uL (1.8-8.9); NEUTROPHILS % (AUTO) 72.2 % (38.5-71.5); PLATELET COUNT (AUTO) 236 K/uL (150-450); RED BLOOD CELL COUNT(AUTO) 2.73 MIL/uL (4.70-6.10); RED CELL DISTRIBUTION WIDTH 13.8 % (11.5-14.5); WHITE BLOOD COUNT (AUTO) 10.6 K/uL (4.0-11.2)
[2016-08-24 05:17] LABS: ALBUMIN 1.7 g/dL (3.4-5.0); BILIRUBIN,TOTAL 0.4 mg/dL (0.2-1.0); CALCIUM 8.3 mg/dL (8.5-10.1); MAGNESIUM 1.8 mg/dL (1.8-2.4); PHOSPHOROUS 2.8 mg/dL (2.5-4.9); POTASSIUM 3.6 mmol/L (3.5-5.1); TOTAL PROTEIN, SERUM 6.4 g/dL (6.4-8.2)
[2016-08-24] MEDS: LEVOTHYROXINE SODIUM 25 MCG TABLET PO SCH (06:22)
[2016-08-24] MEDS: ECHINACEA NG SCH ×3 (06:22→22:21)
[2016-08-24] MEDS: PANTOPRAZOLE ORAL SUSPENSION 40 MG SUSPDR.PKT GT SCH (06:22)
[2016-08-24] MEDS: ALBUTEROL SULFATE 1.25 MG/3 ML NEBU NEB PRN ×2 (07:47→19:12)
[2016-08-24] MEDS: IPRATROPIUM BROMIDE 0.5 MG/2.5 ML NEBU NEB PRN ×2 (07:47→19:12)
[2016-08-24] MEDS: CYANOCOBALAMIN 1,000 MCG TABLET PO SCH (08:50)
[2016-08-24] MEDS: RIFAMPIN 300 MG CAPSULE PO SCH (08:50)
[2016-08-24] MEDS: OMEGA-3 FATTY ACIDS/FISH OIL CAPSULE PO SCH (08:50)
[2016-08-24] MEDS: ASCORBIC ACID 500 MG TABLET PO SCH ×2 (08:50→20:00)
[2016-08-24] MEDS: CHOLECALCIFEROL 1,000 UNIT TABLET PO SCH (08:51)
[2016-08-24] MEDS: HYDROCODONE/APAP 5-325MG TABLET PO PRN (08:53)
[2016-08-24] MEDS: ACETYL CARNITINE NG SCH ×3 (08:53→14:52)
[2016-08-24] MEDS ORDERED: RIFAMPIN 300 MG CAPSULE PO SCH (09:00)
[2016-08-24 09:01] LABS: ABG HCO3 25.7 mmol/L; ABG PCO2 36.2 mmHg (35.0-45.0); ABG PH 7.469 (7.350-7.450); ABG PO2 82.5 mmHg (75.0-100.0); ABG SITE RIGHT RADIAL; ABG TOTAL HEMOGLOBIN 8.9 G/dL (13.5-18.0); MetHb 0.4 % (0.0-1.5); O2Hb 94.5 % (94.0-97.0)
[2016-08-24] MEDS: IV NORMAL SALINE 250 ML IV PRN (18:32)
[2016-08-24] MEDS: FIBERSOURCE HN 1000ML LIQUID GT PRN (18:59)
[2016-08-24] MEDS: CEFTRIAXONE 1 G in IV DEXTROSE 5% 50 ML IV SCH (19:58)
[2016-08-24] MEDS: LACTOBACILLUS RHAMNOSUS GG 1 EACH CAPSULE PO SCH (20:00)
[2016-08-24] MEDS: SIMVASTATIN 10 MG TABLET PO SCH (20:00)
[2016-08-25] VITALS (14 sets, daily range): BP systolic 108–155; BP diastolic 54–68
[2016-08-25] MEDS: VANCOMYCIN IV 750 MG in IV DEXTROSE 5% 250 ML IV SCH (02:42)
[2016-08-25] MEDS: MINERAL OIL/PETROLAT OPHT OINT 3.5 GM TUBE EACHEYE SCH ×3 (03:20→15:59)
[2016-08-25 05:12] LABS: CALCIUM 8.1 mg/dL (8.5-10.1); MAGNESIUM 1.9 mg/dL (1.8-2.4); PHOSPHOROUS 2.7 mg/dL (2.5-4.9); POTASSIUM 3.7 mmol/L (3.5-5.1)
[2016-08-25 05:17] LABS: BASOPHILS % (AUTO) 0.3 % (0.0-2.0); EOSINOPHILS # (AUTO) 0.2 K/uL (0.0-0.7); EOSINOPHILS % (AUTO) 1.6 % (0.0-7.0); HEMATOCRIT 24.9 % (40.0-50.0); HEMOGLOBIN 8.2 g/dL (14.0-18.0); LYMPHOCYTES # (AUTO) 2.2 K/uL (0.8-4.8); LYMPHOCYTES % (AUTO) 19.7 % (20.5-51.5); MEAN CORPUSCULAR HEMOGLOBIN 29.8 uug (27.0-31.0); MEAN CORPUSCULAR HGB CONC 33 g/dL (32.0-37.0); MEAN CORPUSCULAR VOLUME 90.5 fL (82.0-92.0); MONOCYTES # (AUTO) 0.7 K/uL (0.1-1.30); MONOCYTES % (AUTO) 6.5 % (0.0-11.0); NEUTROPHILS # (AUTO) 8.1 K/uL (1.8-8.9); NEUTROPHILS % (AUTO) 71.9 % (38.5-71.5); PLATELET COUNT (AUTO) 231 K/uL (150-450); RED BLOOD CELL COUNT(AUTO) 2.75 MIL/uL (4.70-6.10); RED CELL DISTRIBUTION WIDTH 13.9 % (11.5-14.5); WHITE BLOOD COUNT (AUTO) 11.2 K/uL (4.0-11.2)
[2016-08-25] MEDS: PANTOPRAZOLE ORAL SUSPENSION 40 MG SUSPDR.PKT GT SCH (06:16)
[2016-08-25] MEDS: LEVOTHYROXINE SODIUM 25 MCG TABLET PO SCH (06:16)
[2016-08-25] MEDS: ECHINACEA NG SCH ×2 (06:17→14:40)
[2016-08-25] MEDS: ASCORBIC ACID 500 MG TABLET PO SCH ×2 (08:19→21:25)
[2016-08-25] MEDS: LACTOBACILLUS RHAMNOSUS GG 1 EACH CAPSULE PO SCH ×2 (08:19→21:25)
[2016-08-25] MEDS: OMEGA-3 FATTY ACIDS/FISH OIL CAPSULE PO SCH (08:19)
[2016-08-25] MEDS: RIFAMPIN 300 MG CAPSULE PO SCH (08:19)
[2016-08-25] MEDS: CYANOCOBALAMIN 1,000 MCG TABLET PO SCH (08:19)
[2016-08-25] MEDS: CHOLECALCIFEROL 1,000 UNIT TABLET PO SCH (08:20)
[2016-08-25 08:56] LABS: ABG BASE EXCESS 5.7 mmol/L; ABG HCO3 30.2 mmol/L; ABG PH 7.455 (7.350-7.450); ABG PO2 91.7 mmHg (75.0-100.0); ABG SITE RIGHT RADIAL; ABG TOTAL HEMOGLOBIN 9.3 G/dL (13.5-18.0); MetHb 0.2 % (0.0-1.5); O2Hb 95.9 % (94.0-97.0); VENT MODE Nasal Cannula
[2016-08-25] MEDS: CARVEDILOL 3.125 MG TABLET PO SCH ×2 (11:38→17:27)
[2016-08-25] MEDS ORDERED: NUTREN 2.0 1,000 ML LIQUID GT PRN (20:00)
[2016-08-25] MEDS: CEFTRIAXONE 1 G in IV DEXTROSE 5% 50 ML IV SCH (20:40)
[2016-08-25] MEDS ORDERED: ACETYLCYSTEINE 20% 800 MG/4 ML VIAL PO SCH ×2 (21:00)
[2016-08-25] MEDS: SIMVASTATIN 10 MG TABLET PO SCH (21:25)
[2016-08-25] MEDS: IPRATROPIUM BROMIDE 0.5 MG/2.5 ML NEBU NEB PRN (23:03)
[2016-08-25] MEDS: ALBUTEROL SULFATE 1.25 MG/3 ML NEBU NEB PRN (23:03)
[2016-08-26 00:43] VITALS: BP 150/58
[2016-08-26] MEDS: ECHINACEA NG SCH ×3 (02:58→13:04)
[2016-08-26 04:00] VITALS: BP 140/60
[2016-08-26 06:05] LABS: BASOPHILS # (AUTO) 0.1 K/uL (0.0-0.2); BASOPHILS % (AUTO) 0.5 % (0.0-2.0); EOSINOPHILS # (AUTO) 0.2 K/uL (0.0-0.7); EOSINOPHILS % (AUTO) 2.2 % (0.0-7.0); HEMATOCRIT 28.3 % (40.0-50.0); HEMOGLOBIN 9.6 g/dL (14.0-18.0); LYMPHOCYTES # (AUTO) 2.5 K/uL (0.8-4.8); MEAN CORPUSCULAR HEMOGLOBIN 30.3 uug (27.0-31.0); MEAN CORPUSCULAR HGB CONC 34 g/dL (32.0-37.0); MEAN CORPUSCULAR VOLUME 89.6 fL (82.0-92.0); MONOCYTES # (AUTO) 0.9 K/uL (0.1-1.30); MONOCYTES % (AUTO) 8.3 % (0.0-11.0); NEUTROPHILS # (AUTO) 6.8 K/uL (1.8-8.9); PLATELET COUNT (AUTO) 280 K/uL (150-450); RED BLOOD CELL COUNT(AUTO) 3.16 MIL/uL (4.70-6.10); RED CELL DISTRIBUTION WIDTH 13.9 % (11.5-14.5); WHITE BLOOD COUNT (AUTO) 10.5 K/uL (4.0-11.2)
[2016-08-26 07:06] LABS: ALBUMIN 1.7 g/dL (3.4-5.0); BILIRUBIN,TOTAL 0.4 mg/dL (0.2-1.0); CALCIUM 8.2 mg/dL (8.5-10.1); PHOSPHOROUS 2.9 mg/dL (2.5-4.9); POTASSIUM 3.8 mmol/L (3.5-5.1); TOTAL PROTEIN, SERUM 6.6 g/dL (6.4-8.2)
[2016-08-26] MEDS: LEVOTHYROXINE SODIUM 25 MCG TABLET PO SCH (07:49)
[2016-08-26] MEDS: PANTOPRAZOLE ORAL SUSPENSION 40 MG SUSPDR.PKT GT SCH (07:49)
[2016-08-26] MEDS: OMEGA-3 FATTY ACIDS/FISH OIL CAPSULE PO SCH (08:27)
[2016-08-26] MEDS: LACTOBACILLUS RHAMNOSUS GG 1 EACH CAPSULE PO SCH (08:27)
[2016-08-26] MEDS: RIFAMPIN 300 MG CAPSULE PO SCH (08:28)
[2016-08-26] MEDS: CHOLECALCIFEROL 1,000 UNIT TABLET PO SCH (08:29)
[2016-08-26] MEDS: ASCORBIC ACID 500 MG TABLET PO SCH (08:29)
[2016-08-26] MEDS: CYANOCOBALAMIN 1,000 MCG TABLET PO SCH (08:29)
[2016-08-26] MEDS: ACETYL CARNITINE NG SCH (08:32)
[2016-08-26] MEDS: VANCOMYCIN IV 750 MG in IV DEXTROSE 5% 250 ML IV SCH (08:34)
[2016-08-26] MEDS: CARVEDILOL 3.125 MG TABLET PO SCH ×2 (08:41→17:49)
[2016-08-26] MEDS: IPRATROPIUM BROMIDE 0.5 MG/2.5 ML NEBU NEB PRN ×2 (09:10→21:35)
[2016-08-26] MEDS: ALBUTEROL SULFATE 1.25 MG/3 ML NEBU NEB PRN ×2 (09:10→21:35)
[2016-08-26] MEDS: ACETYLCYSTEINE 20% 800 MG/4 ML VIAL INH SCH ×2 (11:13→21:35)
[2016-08-26 12:13] VITALS: BP 110/52
[2016-08-26] MEDS: LISINOPRIL 5 MG TABLET PO SCH (13:03)
[2016-08-26] MEDS: MINERAL OIL/PETROLAT OPHT OINT 3.5 GM TUBE EACHEYE SCH ×2 (13:04→21:32)
[2016-08-26 15:45] VITALS: BP 126/55
[2016-08-26 20:00] VITALS: BP 109/54
[2016-08-26] MEDS: CEFTRIAXONE 1 G in IV DEXTROSE 5% 50 ML IV SCH (21:31)
[2016-08-27] VITALS: BP 126/55
[2016-08-27] MEDS: ASCORBIC ACID 500 MG TABLET PO SCH ×3 (01:36→20:58)
[2016-08-27] MEDS: LACTOBACILLUS RHAMNOSUS GG 1 EACH CAPSULE PO SCH ×3 (01:36→20:58)
[2016-08-27] MEDS: SIMVASTATIN 10 MG TABLET PO SCH ×2 (01:36→20:58)
[2016-08-27] MEDS: ECHINACEA NG SCH ×4 (01:37→21:17)
[2016-08-27] MEDS: MINERAL OIL/PETROLAT OPHT OINT 3.5 GM TUBE EACHEYE SCH ×4 (03:04→21:16)
[2016-08-27 04:00] VITALS: BP 130/51
[2016-08-27] MEDS: LEVOTHYROXINE SODIUM 25 MCG TABLET PO SCH (06:00)
[2016-08-27] MEDS: PANTOPRAZOLE ORAL SUSPENSION 40 MG SUSPDR.PKT GT SCH (06:00)
[2016-08-27] MEDS: ALBUTEROL SULFATE 1.25 MG/3 ML NEBU NEB PRN ×2 (07:35→21:05)
[2016-08-27] MEDS: IPRATROPIUM BROMIDE 0.5 MG/2.5 ML NEBU NEB PRN ×2 (07:35→21:05)
[2016-08-27] MEDS: ACETYLCYSTEINE 20% 800 MG/4 ML VIAL INH SCH ×2 (07:35→21:05)
[2016-08-27 07:51] LABS: BASOPHILS # (AUTO) 0.1 K/uL (0.0-0.2); BASOPHILS % (AUTO) 0.6 % (0.0-2.0); EOSINOPHILS # (AUTO) 0.3 K/uL (0.0-0.7); EOSINOPHILS % (AUTO) 2.3 % (0.0-7.0); HEMOGLOBIN 9.1 g/dL (14.0-18.0); LYMPHOCYTES # (AUTO) 2.5 K/uL (0.8-4.8); LYMPHOCYTES % (AUTO) 21.6 % (20.5-51.5); MEAN CORPUSCULAR HEMOGLOBIN 30.4 uug (27.0-31.0); MEAN CORPUSCULAR HGB CONC 34 g/dL (32.0-37.0); MEAN CORPUSCULAR VOLUME 90.1 fL (82.0-92.0); MONOCYTES # (AUTO) 0.8 K/uL (0.1-1.30); MONOCYTES % (AUTO) 6.7 % (0.0-11.0); NEUTROPHILS # (AUTO) 8.1 K/uL (1.8-8.9); NEUTROPHILS % (AUTO) 68.8 % (38.5-71.5); PLATELET COUNT (AUTO) 361 K/uL (150-450); RED CELL DISTRIBUTION WIDTH 13.7 % (11.5-14.5); WHITE BLOOD COUNT (AUTO) 11.8 K/uL (4.0-11.2)
[2016-08-27] MEDS: CARVEDILOL 3.125 MG TABLET PO SCH ×2 (08:00→18:00)
[2016-08-27 08:19] LABS: CALCIUM 8.1 mg/dL (8.5-10.1); CREATININE 0.9 mg/dL (0.6-1.3); MAGNESIUM 1.9 mg/dL (1.8-2.4); PHOSPHOROUS 3.1 mg/dL (2.5-4.9); POTASSIUM 3.8 mmol/L (3.5-5.1)
[2016-08-27] MEDS: LISINOPRIL 5 MG TABLET PO SCH (09:00)
[2016-08-27] MEDS: OMEGA-3 FATTY ACIDS/FISH OIL CAPSULE PO SCH (09:13)
[2016-08-27] MEDS: RIFAMPIN 300 MG CAPSULE PO SCH (09:13)
[2016-08-27] MEDS: CHOLECALCIFEROL 1,000 UNIT TABLET PO SCH ×2 (09:14→20:58)
[2016-08-27] MEDS: ASPIRIN 81 MG TAB.CHEW PO SCH (09:14)
[2016-08-27] MEDS: CYANOCOBALAMIN 1,000 MCG TABLET PO SCH (09:14)
[2016-08-27] MEDS: ACETYL CARNITINE NG SCH (09:18)
[2016-08-27] MEDS ORDERED: IV NORMAL SALINE 250 ML IV ONE (10:15)
[2016-08-27 12:13] VITALS: BP 106/46
[2016-08-27 12:15] VITALS: BP 101/42
[2016-08-27] MEDS: VANCOMYCIN IV 750 MG in IV DEXTROSE 5% 250 ML IV SCH (14:44)
[2016-08-27 15:59] VITALS: BP 114/46
[2016-08-27 20:00] VITALS: BP 113/62
[2016-08-27] MEDS: CEFTRIAXONE 1 G in IV DEXTROSE 5% 50 ML IV SCH (20:58)
[2016-08-28] MEDS: MINERAL OIL/PETROLAT OPHT OINT 3.5 GM TUBE EACHEYE SCH ×3 (03:52→14:47)
[2016-08-28 04:00] VITALS: BP 129/58
[2016-08-28] MEDS: PANTOPRAZOLE ORAL SUSPENSION 40 MG SUSPDR.PKT GT SCH (05:33)
[2016-08-28] MEDS: ECHINACEA NG SCH ×3 (05:33→21:43)
[2016-08-28] MEDS: LEVOTHYROXINE SODIUM 25 MCG TABLET PO SCH (06:40)
[2016-08-28 06:53] LABS: BASOPHILS # (AUTO) 0.1 K/uL (0.0-0.2); BASOPHILS % (AUTO) 0.4 % (0.0-2.0); EOSINOPHILS # (AUTO) 0.3 K/uL (0.0-0.7); EOSINOPHILS % (AUTO) 2.1 % (0.0-7.0); HEMATOCRIT 25.5 % (40.0-50.0); LYMPHOCYTES # (AUTO) 3.4 K/uL (0.8-4.8); LYMPHOCYTES % (AUTO) 24.6 % (20.5-51.5); MEAN CORPUSCULAR HEMOGLOBIN 31.3 uug (27.0-31.0); MEAN CORPUSCULAR HGB CONC 35 g/dL (32.0-37.0); MEAN CORPUSCULAR VOLUME 88.8 fL (82.0-92.0); MONOCYTES # (AUTO) 1.1 K/uL (0.1-1.30); MONOCYTES % (AUTO) 7.7 % (0.0-11.0); NEUTROPHILS # (AUTO) 8.8 K/uL (1.8-8.9); NEUTROPHILS % (AUTO) 65.2 % (38.5-71.5); PLATELET COUNT (AUTO) 429 K/uL (150-450); RED BLOOD CELL COUNT(AUTO) 2.87 MIL/uL (4.70-6.10); RED CELL DISTRIBUTION WIDTH 13.7 % (11.5-14.5); WHITE BLOOD COUNT (AUTO) 13.7 K/uL (4.0-11.2)
[2016-08-28] MEDS: ACETYLCYSTEINE 20% 800 MG/4 ML VIAL INH SCH ×2 (07:36→19:49)
[2016-08-28] MEDS: ALBUTEROL SULFATE 1.25 MG/3 ML NEBU NEB PRN ×2 (07:36→19:48)
[2016-08-28] MEDS: CARVEDILOL 3.125 MG TABLET PO SCH ×2 (08:00→17:44)
[2016-08-28] MEDS: ASCORBIC ACID 500 MG TABLET PO SCH ×2 (09:34→20:43)
[2016-08-28] MEDS: RIFAMPIN 300 MG CAPSULE PO SCH (09:34)
[2016-08-28] MEDS: OMEGA-3 FATTY ACIDS/FISH OIL CAPSULE PO SCH (09:34)
[2016-08-28] MEDS: ASPIRIN 81 MG TAB.CHEW PO SCH (09:34)
[2016-08-28] MEDS: CYANOCOBALAMIN 1,000 MCG TABLET PO SCH (09:34)
[2016-08-28] MEDS: LACTOBACILLUS RHAMNOSUS GG 1 EACH CAPSULE PO SCH ×2 (09:35→20:42)
[2016-08-28] MEDS: ACETYL CARNITINE NG SCH (09:36)
[2016-08-28 11:46] VITALS: BP 107/41
[2016-08-28] MEDS: VANCOMYCIN IV 750 MG in IV DEXTROSE 5% 250 ML IV SCH (14:46)
[2016-08-28 15:34] VITALS: BP 95/48
[2016-08-28 20:00] VITALS: BP 105/40
[2016-08-28] MEDS ORDERED: MEROPENEM 500 MG in IV NORMAL SALINE 50 ML IV SCH (20:30)
[2016-08-28] MEDS: SIMVASTATIN 10 MG TABLET PO SCH (20:41)
[2016-08-28] MEDS ORDERED: MEROPENEM 500 MG VIAL IV ONE (21:14)
[2016-08-29] MEDS: ACETAMINOPHEN 325 MG TABLET PO PRN (00:58)
[2016-08-29 05:09] VITALS: BP 119/52
[2016-08-29] MEDS: MINERAL OIL/PETROLAT OPHT OINT 3.5 GM TUBE EACHEYE SCH ×3 (05:49→17:15)
[2016-08-29] MEDS: LEVOTHYROXINE SODIUM 25 MCG TABLET PO SCH (06:40)
[2016-08-29] MEDS: PANTOPRAZOLE ORAL SUSPENSION 40 MG SUSPDR.PKT GT SCH (06:40)
[2016-08-29] MEDS: ECHINACEA NG SCH ×2 (06:41→14:05)
[2016-08-29] MEDS: ACETYLCYSTEINE 20% 800 MG/4 ML VIAL INH SCH ×2 (07:30→23:48)
[2016-08-29 07:49] LABS: BASOPHILS # (AUTO) 0.1 K/uL (0.0-0.2); BASOPHILS % (AUTO) 0.7 % (0.0-2.0); EOSINOPHILS # (AUTO) 0.3 K/uL (0.0-0.7); HEMATOCRIT 24.3 % (40.0-50.0); HEMOGLOBIN 8.5 g/dL (14.0-18.0); LYMPHOCYTES # (AUTO) 2.4 K/uL (0.8-4.8); MEAN CORPUSCULAR HEMOGLOBIN 31.3 uug (27.0-31.0); MEAN CORPUSCULAR HGB CONC 35 g/dL (32.0-37.0); MEAN CORPUSCULAR VOLUME 89.4 fL (82.0-92.0); MONOCYTES # (AUTO) 0.8 K/uL (0.1-1.30); MONOCYTES % (AUTO) 8.2 % (0.0-11.0); NEUTROPHILS # (AUTO) 6.1 K/uL (1.8-8.9); NEUTROPHILS % (AUTO) 63.1 % (38.5-71.5); PLATELET COUNT (AUTO) 414 K/uL (150-450); RED BLOOD CELL COUNT(AUTO) 2.72 MIL/uL (4.70-6.10); RED CELL DISTRIBUTION WIDTH 14.2 % (11.5-14.5)
[2016-08-29 08:01] LABS: WHITE BLOOD COUNT (AUTO) 9.7 K/uL (4.0-11.2)
[2016-08-29 08:11] LABS: ALBUMIN 1.6 g/dL (3.4-5.0); BILIRUBIN,TOTAL 0.4 mg/dL (0.2-1.0); CREATININE 0.9 mg/dL (0.6-1.3); MAGNESIUM 1.9 mg/dL (1.8-2.4); PHOSPHOROUS 3.5 mg/dL (2.5-4.9); POTASSIUM 4.5 mmol/L (3.5-5.1); TOTAL PROTEIN, SERUM 6.4 g/dL (6.4-8.2)
[2016-08-29] MEDS: MEROPENEM 500 MG in IV NORMAL SALINE 50 ML IV SCH ×2 (09:26→22:12)
[2016-08-29] MEDS: CARVEDILOL 3.125 MG TABLET PO SCH ×2 (09:27→17:13)
[2016-08-29] MEDS: ACETYL CARNITINE NG SCH (09:27)
[2016-08-29] MEDS: OMEGA-3 FATTY ACIDS/FISH OIL CAPSULE PO SCH (09:28)
[2016-08-29] MEDS: CYANOCOBALAMIN 1,000 MCG TABLET PO SCH (09:28)
[2016-08-29] MEDS: ASPIRIN 81 MG TAB.CHEW PO SCH (09:28)
[2016-08-29] MEDS: LACTOBACILLUS RHAMNOSUS GG 1 EACH CAPSULE PO SCH ×2 (09:28→22:12)
[2016-08-29] MEDS: ASCORBIC ACID 500 MG TABLET PO SCH ×2 (09:28→22:12)
[2016-08-29] MEDS: CHOLECALCIFEROL 1,000 UNIT TABLET PO SCH (09:29)
[2016-08-29] MEDS: ALBUTEROL SULFATE 1.25 MG/3 ML NEBU NEB PRN ×2 (10:30→23:48)
[2016-08-29 11:56] VITALS: BP 110/46
[2016-08-29] MEDS: VANCOMYCIN IV 750 MG in IV DEXTROSE 5% 250 ML IV SCH (14:05)
[2016-08-29 15:31] VITALS: BP 129/50
[2016-08-29] MEDS ORDERED: NUTREN 1.5 1000ML BAG GT PRN ×2 (18:30)
[2016-08-29 20:00] VITALS: BP 119/59
[2016-08-29] MEDS: SIMVASTATIN 10 MG TABLET PO SCH (22:12)
[2016-08-29] MEDS: IPRATROPIUM BROMIDE 0.5 MG/2.5 ML NEBU NEB PRN (23:48)
[2016-08-30] MEDS: ECHINACEA NG SCH ×4 (00:19→22:00)
[2016-08-30] MEDS: MINERAL OIL/PETROLAT OPHT OINT 3.5 GM TUBE EACHEYE SCH ×5 (04:38→21:45)
[2016-08-30 05:16] VITALS: BP 117/46
[2016-08-30] MEDS: LEVOTHYROXINE SODIUM 25 MCG TABLET PO SCH (06:07)
[2016-08-30] MEDS: PANTOPRAZOLE ORAL SUSPENSION 40 MG SUSPDR.PKT GT SCH (06:07)
[2016-08-30 06:50] LABS: BASOPHILS # (AUTO) 0.1 K/uL (0.0-0.2); BASOPHILS % (AUTO) 0.7 % (0.0-2.0); EOSINOPHILS # (AUTO) 0.3 K/uL (0.0-0.7); EOSINOPHILS % (AUTO) 3.5 % (0.0-7.0); HEMATOCRIT 23.8 % (40.0-50.0); LYMPHOCYTES # (AUTO) 2.7 K/uL (0.8-4.8); LYMPHOCYTES % (AUTO) 29.5 % (20.5-51.5); MEAN CORPUSCULAR HEMOGLOBIN 30.3 uug (27.0-31.0); MEAN CORPUSCULAR HGB CONC 34 g/dL (32.0-37.0); MEAN CORPUSCULAR VOLUME 90.5 fL (82.0-92.0); MONOCYTES # (AUTO) 0.8 K/uL (0.1-1.30); MONOCYTES % (AUTO) 8.7 % (0.0-11.0); NEUTROPHILS # (AUTO) 5.4 K/uL (1.8-8.9); NEUTROPHILS % (AUTO) 57.6 % (38.5-71.5); PLATELET COUNT (AUTO) 462 K/uL (150-450); RED BLOOD CELL COUNT(AUTO) 2.63 MIL/uL (4.70-6.10); RED CELL DISTRIBUTION WIDTH 14.3 % (11.5-14.5); WHITE BLOOD COUNT (AUTO) 9.3 K/uL (4.0-11.2)
[2016-08-30 07:12] LABS: ALBUMIN 1.6 g/dL (3.4-5.0); BILIRUBIN,TOTAL 0.3 mg/dL (0.2-1.0); CREATININE 0.9 mg/dL (0.6-1.3); MAGNESIUM 1.9 mg/dL (1.8-2.4); PHOSPHOROUS 3.4 mg/dL (2.5-4.9); POTASSIUM 4.3 mmol/L (3.5-5.1); TOTAL PROTEIN, SERUM 6.4 g/dL (6.4-8.2)
[2016-08-30] MEDS: ACETYLCYSTEINE 20% 800 MG/4 ML VIAL INH SCH ×3 (07:13→19:53)
[2016-08-30] MEDS: IPRATROPIUM BROMIDE 0.5 MG/2.5 ML NEBU NEB PRN ×2 (07:14→19:53)
[2016-08-30] MEDS: ALBUTEROL SULFATE 1.25 MG/3 ML NEBU NEB PRN ×2 (07:15→19:53)
[2016-08-30] MEDS: OMEGA-3 FATTY ACIDS/FISH OIL CAPSULE PO SCH (09:14)
[2016-08-30] MEDS: ASPIRIN 81 MG TAB.CHEW PO SCH (09:14)
[2016-08-30] MEDS: ACETAMINOPHEN 325 MG TABLET PO PRN (09:14)
[2016-08-30] MEDS: CHOLECALCIFEROL 1,000 UNIT TABLET PO SCH (09:14)
[2016-08-30] MEDS: CYANOCOBALAMIN 1,000 MCG TABLET PO SCH (09:14)
[2016-08-30] MEDS: ASCORBIC ACID 500 MG TABLET PO SCH ×2 (09:14→20:23)
[2016-08-30] MEDS: LACTOBACILLUS RHAMNOSUS GG 1 EACH CAPSULE PO SCH ×2 (09:14→20:23)
[2016-08-30] MEDS: CARVEDILOL 3.125 MG TABLET PO SCH ×2 (09:15→17:22)
[2016-08-30] MEDS: MEROPENEM 500 MG in IV NORMAL SALINE 50 ML IV SCH ×2 (09:34→20:23)
[2016-08-30] MEDS: ACETYL CARNITINE NG SCH (09:38)
[2016-08-30 11:40] VITALS: BP 108/40
[2016-08-30] MEDS: IV NORMAL SALINE 250 ML IV PRN (12:21)
[2016-08-30] MEDS: HYDROCODONE/APAP 5-325MG TABLET PO PRN (13:53)
[2016-08-30 15:53] VITALS: BP 105/46
[2016-08-30 15:55] VITALS: BP 105/46
[2016-08-30] MEDS: VANCOMYCIN IV 750 MG in IV DEXTROSE 5% 250 ML IV SCH (15:57)
[2016-08-30 20:00] VITALS: BP 123/51
[2016-08-30] MEDS: SIMVASTATIN 10 MG TABLET PO SCH (20:23)
[2016-08-31] MEDS: MINERAL OIL/PETROLAT OPHT OINT 3.5 GM TUBE EACHEYE SCH ×3 (03:51→15:49)
[2016-08-31 05:06] LABS: ABG BASE EXCESS 6.4 mmol/L; ABG HCO3 29.7 mmol/L; ABG PH 7.511 (7.350-7.450); ABG PO2 60.9 mmHg (75.0-100.0); ABG SITE LEFT FEMORAL; VENT MODE Nasal Cannula
[2016-08-31 05:55] VITALS: BP 131/61
[2016-08-31] MEDS: PANTOPRAZOLE ORAL SUSPENSION 40 MG SUSPDR.PKT GT SCH (06:00)
[2016-08-31] MEDS: ECHINACEA NG SCH ×2 (06:00→13:27)
[2016-08-31 06:49] LABS: BASOPHILS # (AUTO) 0.1 K/uL (0.0-0.2); BASOPHILS % (AUTO) 1.1 % (0.0-2.0); EOSINOPHILS # (AUTO) 0.3 K/uL (0.0-0.7); EOSINOPHILS % (AUTO) 2.8 % (0.0-7.0); HEMATOCRIT 27.3 % (40.0-50.0); HEMOGLOBIN 9.2 g/dL (14.0-18.0); LYMPHOCYTES # (AUTO) 2.8 K/uL (0.8-4.8); LYMPHOCYTES % (AUTO) 27.9 % (20.5-51.5); MEAN CORPUSCULAR HEMOGLOBIN 30.4 uug (27.0-31.0); MEAN CORPUSCULAR HGB CONC 34 g/dL (32.0-37.0); MEAN CORPUSCULAR VOLUME 90.2 fL (82.0-92.0); MONOCYTES # (AUTO) 0.7 K/uL (0.1-1.30); MONOCYTES % (AUTO) 6.9 % (0.0-11.0); NEUTROPHILS # (AUTO) 6.1 K/uL (1.8-8.9); NEUTROPHILS % (AUTO) 61.3 % (38.5-71.5); PLATELET COUNT (AUTO) 540 K/uL (150-450); RED BLOOD CELL COUNT(AUTO) 3.03 MIL/uL (4.70-6.10); RED CELL DISTRIBUTION WIDTH 14.6 % (11.5-14.5)
[2016-08-31] MEDS: LEVOTHYROXINE SODIUM 25 MCG TABLET PO SCH (06:49)
[2016-08-31 07:12] LABS: ALBUMIN 1.8 g/dL (3.4-5.0); BILIRUBIN,TOTAL 0.3 mg/dL (0.2-1.0); CALCIUM 8.2 mg/dL (8.5-10.1); CREATININE 0.8 mg/dL (0.6-1.3); MAGNESIUM 1.8 mg/dL (1.8-2.4); PHOSPHOROUS 3.2 mg/dL (2.5-4.9); POTASSIUM 4.6 mmol/L (3.5-5.1)
[2016-08-31] MEDS: CARVEDILOL 3.125 MG TABLET PO SCH ×2 (08:00→17:47)
[2016-08-31] MEDS: ACETYLCYSTEINE 20% 800 MG/4 ML VIAL INH SCH (08:12)
[2016-08-31] MEDS: ALBUTEROL SULFATE 1.25 MG/3 ML NEBU NEB PRN (08:12)
[2016-08-31] MEDS: LACTOBACILLUS RHAMNOSUS GG 1 EACH CAPSULE PO SCH (08:47)
[2016-08-31] MEDS: CYANOCOBALAMIN 1,000 MCG TABLET PO SCH (08:47)
[2016-08-31] MEDS: ASCORBIC ACID 500 MG TABLET PO SCH (08:47)
[2016-08-31] MEDS: OMEGA-3 FATTY ACIDS/FISH OIL CAPSULE PO SCH (08:47)
[2016-08-31] MEDS: ASPIRIN 81 MG TAB.CHEW PO SCH (08:47)
[2016-08-31] MEDS: ACETYL CARNITINE NG SCH (08:47)
[2016-08-31] MEDS: CHOLECALCIFEROL 1,000 UNIT TABLET PO SCH (08:48)
[2016-08-31] MEDS: MEROPENEM 500 MG in IV NORMAL SALINE 50 ML IV SCH (08:49)
[2016-08-31 11:56] VITALS: BP 114/50
[2016-08-31] MEDS ORDERED: ACET200V5 INH (12:37)
[2016-08-31] MEDS ORDERED: LACT1CAP57 PO (12:37)
[2016-08-31] MEDS ORDERED: CYAN10006 IM (12:37)
[2016-08-31] MEDS ORDERED: ALBU2.5V13 IH (12:37)
[2016-08-31] MEDS ORDERED: BISA10SU12 RC (12:37)
[2016-08-31] MEDS ORDERED: MINE3.5O EACHEYE (12:37)
[2016-08-31] MEDS ORDERED: IPRA0.2S6 NEB (12:37)
[2016-08-31 15:12] VITALS: BP 131/54
== END 2016-08-31 17:41 | DRG 720 ==
LOC: ER 22:09 → TELE 08-14 00:36 → TELE-TD 08-14 13:30 → TELE 08-15 21:50 → MED 08-17 06:05 → TELE 08-18 20:05 → MED 08-19 16:28 → TELE 08-19 23:44 → CCU 08-21 01:11 → TELE 08-25 22:28 → MED 08-26 12:44 → TELE 08-26 20:29 → MED 08-27 12:10
PROVIDERS: ADMIT Contractor
PROC: 02HV33Z Insertion of Infusion Device into Superior Vena Cava, Percutaneous Approach (ICD-10-PCS; principal; 2016-08-21)
PROC: 30233N1 Transfusion of Nonautologous Red Blood Cells into Peripheral Vein, Percutaneous Approach (ICD-10-PCS; 2016-08-23)
DX: A41.9 Sepsis, unspecified organism (principal); I21.4 Non-ST elevation (NSTEMI) myocardial infarction; J96.01 Acute respiratory failure with hypoxia; N17.0 Acute kidney failure with tubular necrosis; R65.21 Severe sepsis with septic shock; G93.40 Encephalopathy, unspecified; J69.0 Pneumonitis due to inhalation of food and vomit; E43 Unspecified severe protein-calorie malnutrition; R13.10 Dysphagia, unspecified; D68.59 Other primary thrombophilia; R64 Cachexia; E87.1 Hypo-osmolality and hyponatremia; G20 Parkinson's disease; I50.43 Acute on chronic combined systolic (congestive) and diastolic (congestive) heart failure; E87.0 Hyperosmolality and hypernatremia; E86.0 Dehydration; Z95.1 Presence of aortocoronary bypass graft; I25.10 Atherosclerotic heart disease of native coronary artery without angina pectoris; F02.81 Dementia in other diseases classified elsewhere, unspecified severity, with behavioral disturbance; I48.91 Unspecified atrial fibrillation; K27.9 Peptic ulcer, site unspecified, unspecified as acute or chronic, without hemorrhage or perforation; E78.5 Hyperlipidemia, unspecified; Z68.1 Body mass index [BMI] 19.9 or less, adult; H91.93 Unspecified hearing loss, bilateral; N40.0 Benign prostatic hyperplasia without lower urinary tract symptoms; R62.7 Adult failure to thrive; Z87.440 Personal history of urinary (tract) infections; F01.51 Vascular dementia, unspecified severity, with behavioral disturbance; E83.39 Other disorders of phosphorus metabolism; E87.6 Hypokalemia; E03.9 Hypothyroidism, unspecified; D64.9 Anemia, unspecified; Z87.01 Personal history of pneumonia (recurrent); I25.5 Ischemic cardiomyopathy; I25.2 Old myocardial infarction; R19.5 Other fecal abnormalities; K44.9 Diaphragmatic hernia without obstruction or gangrene
CPT/HCPCS: 36415; 36600; 51702; 70030-TC; 71010; 71250; 74000; 82533; 83605; 83735; 84100; 84443; 85018; 85025; 85730; 86850; 86900; 86901; 86920; 87040; 87070; 87077; 87086; 92506; 92526; 92610; 93005; 93307; 93880; 94640; 94664; 97001; 97003; 97110; 97530; A4217; A4663; C1758; J0696; J1120; J1650; J1940; J2185; J2543; J3370; J3480; J3490; J3590; J7030; J7040; J7042; J7050; J7060; J7070